=== PATIENT | female | born 1985 | race Caucasian/White ===

== ENCOUNTER 2025-03-01 10:52 | Day surgery (SDC) | payer OTHER ==
[2025-02-25 15:56] VITALS: BMI 31.4
[2025-02-25 16:15] LABS: Hematocrit 31.9 % (34.9-44.5); Hemoglobin 9.6 g/dL (12.0-15.5); Mean Corpuscular Hemoglobin 21.6 pg (27.0-33.0); Mean Corpuscular Volume 71.7 fL (81.6-98.3); Platelet Count 330 10x3/uL (150-450); Red Blood Cell (RBC) Count 4.45 10x6/uL (3.90-5.03); White Blood Cell (WBC) Count 6.98 10x3/uL (3.5-10.5)
[2025-02-25 16:26] LABS: BHCG - Serum Negative (NEGATIVE); Pregs Control Background? CLEAR/WHITE (CLR/WHITE); Pregs Control Bar Appear? YES (CONTROL BAR)
[2025-03-01] MEDS ORDERED: Rocuronium Bromide 10 MG/ML (10ML VIAL) ONE ×2 (10:56→11:58)
[2025-03-01] MEDS ORDERED: PROPOFOL 20 ML ONE ×2 (10:56→11:55)
[2025-03-01] MEDS ORDERED: Ketorolac Tromethamine 30 MG (1 mL) VIAL ONE (10:56)
[2025-03-01] MEDS ORDERED: Gabapentin 300 MG CAP ONE (11:34)
[2025-03-01] MEDS ORDERED: CEFAZOLIN 2 GM VIAL ONE (11:35)
[2025-03-01] MEDS ORDERED: Famotidine/PF 20 mg/2ml Vial ONE (11:35)
[2025-03-01] MEDS ORDERED: metroNIDAZOLE 500 MG (100 mL) BAG ONE (11:35)
[2025-03-01] MEDS ORDERED: Bupivacaine HCl 0.5%/Epinephrine 1:200,000/PF 30 ml Vial ONE (11:47)
[2025-03-01] MEDS ORDERED: PHENYLEPHRINE-NS 100 MCG/ML 10 ML SYRINGE ONE ×2 (11:55→13:09)
[2025-03-01] MEDS ORDERED: Sevoflurane 250 ML INH ANEST BOTTLE ONE (11:58)
[2025-03-01] MEDS ORDERED: HYDROcodone/Acetaminophen 5/325 mg Tablet ONE (14:28)
== END 2025-03-01 15:55 | disposition home or self-care (01) ==
LOC: CSHSDC 10:52
PROVIDERS: ATTEND Obstetrics & Gynecology
PROC: 0UT94ZZ Resection of Uterus, Percutaneous Endoscopic Approach (ICD-10-PCS; principal; 2025-03-01)
PROC: 0UT74ZZ Resection of Bilateral Fallopian Tubes, Percutaneous Endoscopic Approach (ICD-10-PCS; principal; 2025-03-01)
DX: N80.03 Adenomyosis of the uterus (principal); N72 Inflammatory disease of cervix uteri; N87.9 Dysplasia of cervix uteri, unspecified; N88.8 Other specified noninflammatory disorders of cervix uteri; F41.9 Anxiety disorder, unspecified; G47.00 Insomnia, unspecified; Z98.51 Tubal ligation status; Z87.891 Personal history of nicotine dependence; Z79.899 Other long term (current) drug therapy
CPT/HCPCS: 84703; 85027; 86850; 86900; 86901; 88307; C9250-JZ; J1100; J1308; J1885; J2250; J2704; J3010; S2900